=== PATIENT | female | born 1985 | race Caucasian/White ===

== ENCOUNTER 2022-04-02 16:40 | Emergency (ER) | payer OTHER, SELFPAY ==
[2022-04-02 16:57] VITALS: BP 118/84; PULSE 75; RESP 20; TEMP 35.9; O2SAT 98; BMI 33.3
--- NOTE | 2022-04-02 17:25 | CRLHL7_ITS ---
For Patients: As a result of the Century Cures Act, medical imaging exams and procedure reports are released immediately into your electronic medical record. You may view this report before your referring provider. If you have questions, please contact your health care provider. HISTORY: Stepped on glass. COMPARISON: None. FINDINGS: There is tiny tanner of increased density within the superficial tissue of plantar foot in the area of interest, indicated by arrow. This may represent a small foreign body. No evidence for acute fracture or dislocation. Dictated by Margot Kirkpatrick MD @ 04/02/2022 6:09:55 PM (Electronically Signed)
--- NOTE | 2022-04-02 18:36 | ED_ITS ---
HPI - Wound/Laceration General Chief Complaint: Laceration/Wound Stated Complaint: Lac left foot Time Seen by Provider: 04/02/22 16:43 Source: patient and family Mode of arrival: ambulatory Limitations: no limitations History of Present Illness HPI narrative: Nuvia is a 36yo female patient presents emergency department with complaints of a nonhealing wound on her left foot. Patient states that she stepped on a piece of tempered glass approximately 3 weeks prior, and she has had continued pain at site of injury. At time of injury, she reports flushing wound and placing a hydrocolloid Band-Aid. She is continued on her routine activity with pain noted with ambulation. She denies numbness, tingling, or weakness. She presents today for evaluation of potential retained foreign body. She denies other acute concerns or complaints. See nursing notes for details. Related Data Home Medications Medication Instructions Recorded Confirmed buspirone 10 mg tablet 20 mg PO BID 04/02/22 04/02/22 escitalopram oxalate 10 mg tablet 10 mg PO DAILY 04/02/22 04/02/22 escitalopram oxalate 20 mg tablet 20 mg PO DAILY 04/02/22 04/02/22 Allergies Allergy/AdvReac Type Severity Reaction Status Date / Time disinfectant wipes AdvReac Uncoded 04/02/22 17:03 Review of Systems Const: Denies: fever, chills or fatigue Cardio: Denies: chest pain or shortness of breath with exertion Resp: Denies: shortness of breath GI: Denies: abdominal pain Musculo: Reports: extremity pain; Denies: extremity swelling or limited range of motion Neuro: Denies: numbness in extremities or weakness in extremities Endo: Denies: fatigue PFSH PFSH Social History Smoking Status: Never smoker Do you use any of these nicotine containing products: None How often do you have a drink containing alcohol: never How often do you have six or more drinks on one occasion: Never AUDIT-C Alcohol total score: 0 Non-prescribed substance use: denies use service: No Exam Const: Vital Signs, click to edit/add: Vital Signs - 24 hr 04/02/22 16:57 Temperature 96.6 F L Pulse Rate [Right Pulse Oximeter] 75 Respiratory Rate 20 Blood Pressure [Ri ght Upper Arm] 118/84 Pulse Oximetry 98 Oxygen Delivery Me thod Room Air Documenting provider has reviewed patient's vital signs: yes Common normals: no apparent distress, oriented x3, healthy appearing, alert and well nourished General appearance: cooperative, comfortable, well kempt and well developed Nutritional appearance: obese Orientation/consciousness: Yes awake, Yes oriented to person, Yes oriented to place and Yes oriented to time HENMT: Common normals: normocephalic, head/scalp atraumatic and hearing grossly normal bilaterally Head and scalp: normocephalic and atraumatic Resp: Common normals: normal respiratory effort, no retractions and no use of accessory muscles Effort & inspection: able to speak in complete sentences Cardio: Common normals: peripheral pulses 2+ throughout Peripheral pulses: pulses 2+ throughout Extremity: Common normals: normal to inspection and no clubbing, cyanosis or edema Left lower extremity: foot and digits Left foot and digits: inspection (3mm laceration, healing ), palpation (tender to palpation) and neurovascular exam (sensation and motor intact) Neuro: Common normals: oriented x3 Sensorium/orientation: awake, alert, oriented to person, oriented to place and oriented to time Gait (neuro): normal gait Motor exam: strength 5/5 throughout Psych: Appearance: well kempt Course Course Hospital Course: Nuvia presented to the emergency department for evaluation of retained foreign body. Discussion of evaluation under anesthesia, and patient agreed. She was prepped and draped in the usual fashion, and anesthetized with 3 mL of 1% lidocaine with epinephrine. After which incision was made along the site of previous injury, now healing. The surrounding skin was undermined and the lesion was flushed with 30 mL of normal saline. After which with gentle debridement the ascending portion of the last was easily removed. The wound was flushed with another 30 mL of normal saline. The incision site was noted to be hemostatic. The wound was dressed with bacitracin and a clean bandage. No additional foreign bodies were noted. Vital Signs Vital signs: Initial Vital Signs Temperature 96.6 F L 04/02/22 16:57 Temperature Source Temporal Artery Scan 04/02/22 16:57 Pulse Rate 75 04/02/22 16:57 Respiratory Rate 20 04/02/22 16:57 Blood Pressure 118/84 04/02/22 16:57 Blood Pressure Mean 95 08/13/22 16:57 Blood Pressure Position Sitting 04/02/22 16:57 Pulse Oximetry 98 04/02/22 16:57 Oxygen Delivery Method 04/02/22 16:57 Vital Signs Temperature 96.6 F L 04/02/22 16:57 Pulse Rate 75 04/02/22 16:57 Respiratory Rate 20 04/02/22 16:57 Blood Pressure 118/84 04/02/22 16:57 Pulse Oximetry 98 04/02/22 16:57 Oxygen Delivery Method 04/02/22 16:57 Temperature 96.6 F L 04/02/22 16:57 Pulse Rate 75 04/02/22 16:57 Respiratory Rate 20 04/02/22 16:57 Blood Pressure 118/84 04/02/22 16:57 Pulse Oximetry 98 04/02/22 16:57 Oxygen Delivery Method 04/02/22 16:57 Discharge Plan Discharge Clinical Impression: Foreign body (FB) in soft tissue Patient Disposition: Home, Self-Care Condition: Improved Instructions: Soft Tissue Foreign Body (ED) Additional Instructions: Thank you for choosing [facility] for your care today. Keep wound clean and dry for the next 24-48hrs. Then, clean the wound daily with mild soap (Dove Sensitive Skin Bar, Cetaphil Daily Cleanser, or Vanicream) and warm water. Pat dry and immediately apply a thin layer of Vaseline or triple antibiotic ointment. If you notice increasing pain, redness spreading away from the wound, yellow or green drainage requiring bandages to be changed multiple times per day, or fever greater than 100.5 F, please return for reevaluation. If your wound begins to bleed, apply firm pressure with gauze for 20 continuous minutes. Resist the urge to check the wound by peeking under your gauze. Every time you lift the gauze, the blood vessels open and the clotting process needs to start over again. If new or worsening symptoms develop or you have any concerns in the meantime, please call your primary care clinic or return to the ER for re-evaluation. Activity Level: No Restrictions and Weight Bearing as Tolerated Discharge Diet: Regular and Heart Healthy (2 gm sodium, low fat) Prescriptions: No Action buspirone 10 mg tablet 20 mg PO BID Label Comments: TAKE ONE TABLET TWICE DAILY. MAY INCREASE TO 1.5 TABS AFTER 4 WEEKS IF NO BENEFITS & NO SIDE EFFECTS escitalopram oxalate 10 mg tablet 10 mg PO DAILY Label Comments: TAKE 1 TABLET (10 MG) BY MOUTH DAILY WITH 20 MG (30 MG TOTAL). escitalopram oxalate 20 mg tablet 20 mg PO DAILY Label Comments: TAKE 1 TABLET (20 MG) BY MOUTH DAILY WITH 10 MG (30 MG TOTAL) Follow Up/Referrals: Iwona Raygoza MD [Primary Care Provider] - Stand Alone Forms: [facility] Info Instructions Procedures Foreign Body Removal Time Out Performed: yes Site: left Description of foreign body: other (glass, irregular) Technique: manual removal and irrigation Confirmed by:: direct visualization and radiograph Complications: none Post-procedure exam: awake, alert Neurovascular: normal distal pulse and normal capillary fill
== END 2022-04-02 19:03 | disposition home or self-care (01) ==
PROVIDERS: Emergency Provider Family Medicine; PCP Family Medicine
DX: S91.322A Laceration with foreign body, left foot, initial encounter (principal)
CPT/HCPCS: 10120; 73620; 99281; 99282